=== PATIENT | male | born 1995 | race Caucasian/White ===

== ENCOUNTER 2017-04-18 04:40 | Emergency (ER) | payer MEDICAID ==
--- NOTE | 2017-04-18 05:28 | ED Physician Chart ---
ED Chief Complaint/HPI - Patient Information Date Seen:: 04/18/17 Time Seen:: 05:10 Chief Complaint:: cut right hand History of Present Illness:: loation: right hand quality: cut on hand severity: mild, mod duration: one hour context: pt was at work and accidentally cut his hand on a piece of plastic. reports wound at hand. decided to come to the ER for physician examination and treatment. says a piece of plastic came across his palm very lightly and cut the palm. no paralysis or paresthesia some mild initial bleeding which stopped spontaneously. mod factors: none assoc s/s; none hx from pt. Allergies:: Allergies Allergy/AdvReac Type Severity Reaction Status Date / Time No Known Allergies Allergy Verified 04/18/17 05:04 Vitals:: Vital Signs - 8 hr 04/18/17 04:40 Temp 99.0 F HR 120 RR 20 BP 152/88 O2 Sat % 100 Historian:: Patient Review:: Nurse's Note Reviewed ED Review of Systems - Review of Systems General/Constitutional: No fever, No chills, No weight loss, No weakness, No diaphoresis, No edema, No loss of appetite Skin: No skin lesions, No rash, No bruising Head: No headache, No light-headedness Eyes: No loss of vision, No pain, No diplopia ENT: No earache, No nasal drainage, No sore throat, No tinnitus Neck: No neck pain, No swelling, No thyromegaly, No stiffness, No mass noted Cardio Vascular: No chest pain, No palpitations, No PND, No orthopnea, No edema Pulmonary: No SOB, No cough, No sputum, No wheezing GI: No nausea, No vomiting, No diarrhea, No pain, No melena, No hematochezia, No constipation, No hematemesis G/U: No dysuria, No frequency, No hematuria Musculoskeletal: No bone or joint pain, No back pain, No muscle pain Endocrine: No polyuria, No polydipsia Psychiatric: No prior psych history, No depression, No anxiety, No suicidal ideation Hematopoietic: No bruising, No lymphadenopathy Allergic/Immuno: No urticaria, No angioedema Neurological: No syncope, No focal symptoms, No weakness, No paresthesia, No headache, No seizure, No dizziness, No confusion, No vertigo ED Past Medical History - Past Medical History Past Medical History: No significant medical hx Family History: None Social History: Smoker, Alcohol, Illicit Drug Use, Single, Lives With Parents Surgical History: None Psychiatricy History: None Medication: None Family Medical History - Family Member Father Hx Family Diabetes: Yes ED Physical Exam - Physical Examination General/Constitutional: Awake, Well-developed, well-nourished, Alert, No distress, GCS 15, Non-toxic appearing, Ambulatory Head: Atraumatic Eyes: Lids, conjuctiva normal, PERRL, EOMI Skin: Nl inspection, No rash, No skin lesions, No ecchymosis, Well hydrated, No lymphadenopathy ENMT: External ears, nose nl, Nasal exam nl, Lips, teeth, gums nl Neck: Nontender, No nuchal rigidity Respiratory: Nl effort/Exclusion, Clear to Auscultation, No Wheeze/Rhonchi/Rales Cardio Vascular: RRR, No murmur, gallop, rubs, NL S1 S2 Extremities: No tenderness or effusion, Full ROM, normal strength in all extremities, No edema, Normal digits & nails (right hand palm with very superficial medial to lateral oriented wound approximate length 10 cm. medial 5 cm of wound do not separate. lateral 5 cm of wound separate only partially. wound is clean, edges approximate spontaneously when hand is flexed at wrist. ) Neuro/Psych: Alert/oriented, Judgement/insight normal, Mood normal ED Assessment - Assessment General Assessment: 10 cm superficial wound right palmar hand procedure note 10 cm sagitally oriented palmar wound, explored to base, no foreign object identified wound is cleansed with sterile solution steri strips applied dermabond is applied over steri strips pt tolerates procedure well wrist splint is applied pt is advised not to do any work with affected hand for 7 days to facilitate wound healing . pt says he understands physician advice. ED Septic Shock - . Is Septic Shock (SBP<90, OR Lactate>4 mmol\L) present?: No - <6hrs of presentation: Vital Signs: Vital Signs - 8 hr 04/18/17 04:40 Temp 99.0 F HR 120 RR 20 BP 152/88 O2 Sat % 100 ED Reassessment (Disposition) - Reassessment Reassessment:: pt stable while in ER tolerates procedure well Reassessment Condition:: Improved - Diagnosis Diagnosis:: 10 cm superficial wound at right palm, repaired with steri strips and skin adhesive - Aftercare/Follow up Instructions Aftercare/Follow-Up Instructions:: Refer to Discharge Instructions Notes:: go to your clinic physician for recheck tomorrow avoid work with affected hand for 7 days - Patient Disposition Discharge/Transfer:: Home Condition at Disposition:: Stable, Improved
== END 2017-04-18 05:55 | disposition home or self-care (01) ==
LOC: ER 04:40
DX: S60.921A Unspecified superficial injury of right hand, initial encounter (principal); F17.200 Nicotine dependence, unspecified, uncomplicated; W45.8XXA Other foreign body or object entering through skin, initial encounter; Y93.89 Activity, other specified; Y92.89 Other specified places as the place of occurrence of the external cause; Y99.8 Other external cause status
CPT/HCPCS: Z7502